=== PATIENT | male | born 1970 | race Two or more races ===

== ENCOUNTER 2020-10-30 03:33 | Emergency (ER) | payer MEDICAID, OTHER ==
[~2020-10-30] VITALS: Ht 170.2 cm; Wt 104.3 kg
[2020-10-30 04:10] VITALS: BP 167/107
[2020-10-30] MEDS ORDERED: PANTOPRAZOLE 40 MG/10 ML VIAL INJ IV ONE (04:30)
[2020-10-30] MEDS ORDERED: SODIUM CHLORIDE 0.9% 1,000 ML IV ONE (04:30)
[2020-10-30 12:20] LABS: Urine Bacteria NONE SEEN /hpf (None Seen); Urine Blood Negative /uL (Negative); Urine Specific Gravity 1.014 (1.001-1.035); Urine WBC 1 /hpf (0 - 3)
== END 2020-10-30 15:42 | disposition left against medical advice (07) ==
LOC: ER 03:33
DX: K80.10 Calculus of gallbladder with chronic cholecystitis without obstruction (principal)
CPT/HCPCS: 74176; 76705; 81001; 99285; J7030

== ENCOUNTER 2025-09-21 18:08 | Inpatient (IN) | payer MEDICAID ==
[~2025-09-21] VITALS: Ht 170.2 cm; Wt 127.9 kg
[2025-09-21] MEDS: MORPHINE SULFATE INJ 2 MG/ml SYRG IV ONE (18:45)
--- NOTE | 2025-09-21 19:08 | ED.PDOC ---
History of Present Illness HPI Comments 55 y/o M presents with c/c of bilateral leg pain, numbness, tingling, swelling, and skin discoloration. Significant history for DM, HTN, and noncompliance. Patient reports on 1.5x day history of pain, numbness, and tingling in his legs and developing dark skin discoloration, today, with associated fever and chills. He denies any recent trauma, injuries, or long distance travel but reports on having similar symptoms 2x years ago when he had cellulitis. Patient also mentions on being without his DM and HTN medications, that he is unable to recall the names of, since July 09, 2025, due to financial costs. Patient also complains of chest wall pain after falling and injuring his chest 2 days ago. No reported shortness of breath, additional injuries, or further acute symptoms. REVIEW OF SYSTEMS: General: Fever and chills. No fatigue HEENT: No sore throat, no earache, no congestion, no neck pain. Cardiac: This wall pain. No palpitations. Lungs: No shortness of breath, no cough. GI: No nausea, no vomiting, no diarrhea, no constipation, no abdominal pain : No dysuria, frequency, or urgency. No hematuria. Musculoskeletal: Bilateral lower extremity pain and edema. No joint pain , no joint swelling Skin: Bilateral lower extremity skin discoloration, No rash, no itching. Neuro: Bilateral lower extremity numbness and tingling. No headache, no dizziness, no weakness (And as sated in HPI) PHYSICAL EXAM: General: Awake, alert and oriented. No acute distress. Skin: Skin in warm, dry and intact. Appropriate color for ethnicity. HEENT: The head is normocephalic and atraumatic. Conjunctivae are clear without exudates or hemorrhage. Sclera is non-icteric. Eyelids are normal in appearance without swelling or lesions. Oral mucosa is pink and moist Neck: The neck is supple with normal range of motion. No JVD. Cardiac: Left chest wall bruising with tenderness to palpation. Heart rate and rhythm are normal. No murmurs, gallops, or rubs are auscultated. Respiratory: No signs of respiratory distress. Lung sounds are clear in all lobes bilaterally without rales, rhonchi, or wheezes. Abdominal: Abdomen is soft, non-tender without distention, guarding or rigidity. Bowel sounds are present and normoactive in all four quadrants. Extremities: BLE tenderness, edema, venous stasis changes. Sensations are intact with normal DP pulses, bilaterally, to lower extremities. Neurological: The patient is awake, alert and oriented to person, place, and time with normal speech. Speech is clear. There is no facial asymmetry. Psychiatric: Appropriate mood and affect. Good judgement and insight. Chief Complaint: Extremity Swelling Time Seen by MD: 18:45 Allergies: Coded Allergies: NO KNOWN ALLERGIES (Unverified , 10/30/20) Mode of Arrival: Ambulatory Past Medical History PAST MEDICAL HISTORY: DM, HTN Past Medical History (Other): Noncompliance Surgical History: Appendectomy Family History Family History: Reviewed,noncontributory to illness Social History Smoker: Non-Smoker Alcohol: Denies ETOH Use Drugs: Denies Drug Use Lives In: Home Was a procedure done? Was a procedure done?: No Differential Dx Considerations may include: Viral illness, pharyngitis, otitis media, bacteremia, pneumonia, UTI, meningitis, sepsis, cellulitis, DVT, CHF exacerbation, DKA, uncontrolled diabetes, uncontrolled hypertension, other X-Ray, Labs, Meds, VS Vital Signs Date Time Temp Pulse Resp B/P (MAP) Pulse Ox O2 Delivery O2 Flow Rate FiO2 09/21/25 18:09 98.4 121 18 150/106 97 98.4 Lab Test 09/21/25 20:36 09/21/25 19:14 Range/Units Lactic Acid Level Pending Troponin I High Sensitivity Pending 4 </=54 ng/L White Blood Count 17.8 H 4.4-10.8 10^3/uL Red Blood Count 5.50 4.5-5.90 10^6/uL Hemoglobin 16.6 13.5-17.5 g/dL Hematocrit 50.2 41.0-53.0 % Mean Corpuscular Volume 91.2 80.0-100.0 fL Mean Corpuscular Hemoglobin 30.1 28.0-32.0 pg Mean Corpuscular Hemoglobin Concent 33.0 32.0-36.0 g/dL Red Cell Distribution Width 13.5 11.8-14.3 % Platelet Count 213 140-450 10^3/uL Mean Platelet Volume 8.3 6.9-10.8 fL Neutrophils (%) (Auto) 89.9 H 37.0-80.0 % Lymphocytes (%) (Auto) 5.2 L 10.0-50.0 % Monocytes (%) (Auto) 4.5 0.0-12.0 % Eosinophils (%) (Auto) 0.3 0.0-7.0 % Basophils (%) (Auto) 0.1 0.0-2.0 % Neutrophils # (Auto) 16.0 H 1.6-8.6 10 ^3/uL Lymphocytes # (Auto) 0.9 0.4-5.4 10 ^3/uL Monocytes # (Auto) 0.8 0-1.3 10 ^3/uL Eosinophils # (Auto) 0.1 0-0.8 10 ^3/uL Basophils # (Auto) 0 0-0.2 10 ^3/uL Nucleated Red Blood Cells 0.1 % Sodium Level 136 136-145 mmol/L Potassium Level 4.3 3.5-5.1 mmol/L Chloride Level 105 98-107 mmol/L Carbon Dioxide Level 20 20-31 mmol/L Anion Gap 11 5-15 Blood Urea Nitrogen 11 9-23 mg/dL Creatinine 0.83 0.700-1.30 mg/dL Glomerular Filtration Rate Calc 105 >90 mL/min BUN/Creatinine Ratio 13.3 10.0-20.0 Serum Glucose 120 H 74-106 mg/dL Calcium Level 9.1 8.7-10.4 mg/dL B-Type Natriuretic Peptide 16.86 0-100 pg/mL [place] [address] Ph: [phone] DIAGNOSTIC IMAGING Diagnostic Imaging Report : [id number] Signed PATIENT: HUANG FRASER ACCT: [id number] UNIT: [id number] : 1970 LOC: ER ROOM / BED: / AGE / SEX: 55 / M ADM STATUS: REG ER SERVICE [id number] ORDERING PHYSICIAN: PAM YANCEY MD PROCEDURE(s): BLDVT - BiLat Lower DVT REASON: b/l le edema ORDER NUMBER(s): [id number], ACCESSION NUMBER(s): [id number] US BiLat Lower DVT Comparison: CV VENOUS DOPPLER LOW EXT RT on DOS: 07/15/23 Technique: Realtime grayscale and Doppler ultrasound images of the deep venous structures with spectral waveform analysis were obtained.Doppler spectral waveform analysis of the bilateral lower extremity veins was performed. Findings: Right Lower Extremity: Right common femoral vein: Normal compressibility and flow. Right femoral vein: Normal compressibility and flow. Right popliteal vein: Normal compressibility and flow. Left Lower Extremity: Left common femoral vein: Normal compressibility and flow. Left femoral vein: Normal compressibility and flow. Left popliteal vein: Normal compressibility and flow. IMPRESSION: NO SONOGRAPHIC EVIDENCE FOR DEEP VENOUS THROMBOSIS IN THE BILATERAL LOWER EXTREMITY VEINS. ATED BY: WARD TRAMMELL MD DICTATED DATE/TIME: 09/21/251951 SIGNED BY: WARD TRAMMELL MD SIGNED DATE/TIME: 09/21/251951 CC: [place] [id number] Ph: [phone] DIAGNOSTIC IMAGING Diagnostic Imaging Report : [id number] Signed PATIENT: HUANG FRASER ACCT: [id number] UNIT: [id number] : 1970 LOC: ER ROOM / BED: / AGE / SEX: 55 / M ADM STATUS: REG ER SERVICE 44 ORDERING PHYSICIAN: PAM YANCEY MD PROCEDURE(s): CXR1 - CHEST XRAY 1 VIEW REASON: cp ORDER NUMBER(s): [id number], ACCESSION NUMBER(s): [id number] CHEST RADIOGRAPH Indication: cp Technique: Single frontal view of the chest was obtained. Comparison: XR CHEST 1 VIEW on DOS: 03/04/21 Findings: No focal consolidation. No significant pleural effusion. No pneumothorax. Nonenlarged cardiomediastinal silhouette. IMPRESSION: No acute cardiopulmonary process. ATED BY: WARD TRAMMELL MD DICTATED DATE/TIME: 09/21/251957 SIGNED BY: WARD TRAMMELL MD SIGNED DATE/TIME: 09/21/251957 CC: Time of 1ST Reevaluation: 19:08 Reevaluation 1ST: Unchanged Patient Education/Counseling: Need For Follow Up Family Education/Counseling: No Family Present SEPSIS Sepsis Screen Date sepsis recognized/suspect: Sep 21, 2025 Time Sepsis recognized/suspect: 1809 Recent Procedure: No On Antibiotic Therapy: No Respiratory Rate >20: No Heart Rate >90: No Temp<36 C (96.8 F) or >38.3 C: No SBP <90 or MAP <65 mmHG: No New Acute Mental Status Change: No Is the patient on CPAP, BIPAP,: No Physician Orders Bilat Lower Dvt (09/21/25 18:45) Electrocardigram (09/21/25 18:45) Chest Xray 1 View (09/21/25 18:45) Vital Signs Q1HR (09/21/25 18:45) Saline Lock (09/21/25 18:45) Rn Nursery (09/21/25 ) Electrocardigram (09/21/25 19:45) Electrocardigram (09/21/25 21:45) Troponin-I Hs (09/21/25 19:45) Troponin-I Hs (09/21/25 21:45) Blood Culture (09/21/25 19:57) Lactic Acid W/ Reflex Order (09/21/25 19:57) Sodium Chloride 0.9% (09/21/25 20:00) Sodium Chloride 0.9% (09/21/25 20:00) Vancomycin 1gm/250ml Kit (09/21/25 20:45) Vital Signs Date Time Temp Pulse Resp B/P (MAP) Pulse Ox O2 Delivery O2 Flow Rate FiO2 09/21/25 18:09 98.4 121 18 150/106 97 98.4 Laboratory Tests Test 09/21/25 19:14 09/21/25 20:36 White Blood Count 17.8 10^3/uL (4.4-10.8) H Lactic Acid Level Pending Departure 1 Departure Time of Disposition: 20:56 Impression: Primary Impression: Cellulitis Disposition: LEFT AWOL/ELOPED Condition: Stable Comments MDM: 55-year-old male with bilateral lower extremity cellulitis Antibiotics initiated in the ED Patient is stabilized in the ED Patient admitted to hospitalist service for further treatment, evaluation and monitoring. Extensive evaluation was performed in attempt to identify or rule out: (See differential diagnosis section) The following tests were ordered, and results were reviewed by me and discussed with patient: (See diagnostic results section) The following test were independently interpreted by me: Troponin, EKG, BNP, CBC, BMP I reviewed and agreed with the following test results read by other providers: Chest x-ray, bilateral lower extremity DVT ultrasound I reviewed the following notes from the pt's past medical encounters: October 30, 2020 encounter for acute abdominal pain Additional information was gathered from interviewing the following independent historians: N/A Discussion of management or test interpretation with external physician/other qualified health family member caretaker: N/A Addressed an acute or chronic illness that poses a threat to life or bodily function: Cellulitis Decision regarding hospitalization or escalation of hospital level of care: Risk and benefits of admission for further treatment of patient's condition was considered. Due to patient's current clinical condition, high risk of decline and poor outcome if discharged and need for further inpatient management and monitoring, patient will be admitted to the hospital. Critical Care Note Critical Care Time?: No Stability Stability form required: No Heart Score Heart Score: Heart Score Response (Comments) Value History N/A 0 EKG N/A 0 Age N/A 0 Risk Factors N/A 0 Troponin N/A 0 Total 0 I personally scribed for PAM YANCEY MD ([email or web address]) on 09/21/25 at 19:08. Electronically submitted by Aren Chawla ([email or web address]). I personally scribed for PAM YANCEY MD ([email or web address]) on 09/21/25 at 20:02. Electronically submitted by Nii Ruiz ([email or web address]). PAM YANCEY MD Sep 21, 2025 19:08
[2025-09-21 19:27] LABS: Hematocrit 50.2 % (41.0-53.0); Hemoglobin 16.6 g/dL (13.5-17.5); Mean Corpuscular Hemoglobin 30.1 pg (28.0-32.0); Mean Corpuscular Volume 91.2 fL (80.0-100.0); Nucleated Red Blood Cells % 0.1 %
[2025-09-21 19:49] LABS: Chloride 105 mmol/L (98-107); Potassium 4.3 mmol/L (3.5-5.1)
[2025-09-21 19:50] LABS: Anion Gap 11 (5-15)
[2025-09-21 19:51] LABS: Calcium 9.1 mg/dL (8.7-10.4)
[2025-09-21 19:55] LABS: BUN/Creatinine Ratio 13.3 (10.0-20.0); Blood Urea Nitrogen 11 mg/dL (9-23)
--- NOTE | 2025-09-21 19:55 | DVH ---
US BiLat Lower DVT Comparison: CV VENOUS DOPPLER LOW EXT RT on DOS: 07/15/23 Technique: Realtime grayscale and Doppler ultrasound images of the deep venous structures with spectral waveform analysis were obtained.Doppler spectral waveform analysis of the bilateral lower extremity veins was performed. Findings: Right Lower Extremity: Right common femoral vein: Normal compressibility and flow. Right femoral vein: Normal compressibility and flow. Right popliteal vein: Normal compressibility and flow. Left Lower Extremity: Left common femoral vein: Normal compressibility and flow. Left femoral vein: Normal compressibility and flow. Left popliteal vein: Normal compressibility and flow. IMPRESSION: NO SONOGRAPHIC EVIDENCE FOR DEEP VENOUS THROMBOSIS IN THE BILATERAL LOWER EXTREMITY VEINS.
[2025-09-21] MEDS: SODIUM CHLORIDE 0.9% 1,000 ML IV ONE ×2 (20:00)
--- NOTE | 2025-09-21 20:00 | DVH ---
CHEST RADIOGRAPH Indication: cp Technique: Single frontal view of the chest was obtained. Comparison: XR CHEST 1 VIEW on DOS: 03/04/21 Findings: No focal consolidation. No significant pleural effusion. No pneumothorax. Nonenlarged cardiomediastinal silhouette. IMPRESSION: No acute cardiopulmonary process.
[2025-09-21 20:08] LABS: Carbon Dioxide 20 mmol/L (20-31); Glucose 120 mg/dL (74-106); Sodium 136 mmol/L (136-145)
[2025-09-21] MEDS ORDERED: VANCOMYCIN 1GM/250ML KIT 250 ML IV ONE (20:45)
[2025-09-21] MEDS: LOSARTAN POTASSIUM 25 MG TAB PO ONE (21:45)
[2025-09-21] MEDS ORDERED: SODIUM CHLORIDE 0.9% 1,000 ML IV ONE (21:45)
--- NOTE | 2025-09-21 21:48 | DVHHPRES ---
History of Present Illness Resident Creating Document: [facility]T [facility] RESIDENT History of Present Illness Mr Armand Mondragon, is a 55-year-old male with past medical history of insulin- dependent diabetes mellitus, hypertension noncompliant with medicines, fatty liver disease, recurrent cellulitis presented to the ER with the complaints of bilateral leg swelling and redness gradually developing since last 2 days, associated with fever and chills. He also reports having tingling and numbness on the lower extremities. The patient also had a fall 4 days back followed by left-sided chest pain. He also reports having shortness of breaths. He denies any other complaints. Past surgical history: Appendectomy Family history: Grandmother had a bone cancer, no other significant history, no history of blood clots in the family Home medications: Patient does not recall, patient will call sister Smoking: Drugs: amphetamine, cocaine Alcohol: Allergies: None Family doctor: Dr. Elmore? code status: full code Review of Systems Allergies: Coded Allergies: NO KNOWN ALLERGIES (Unverified , 10/30/20) Medications Current Medications Medications Dose Ordered Sig/Delia Route Start Time Stop Time Status Last Admin Dose Admin Acetaminophen/ Hydrocodone Bitart 1 tab Q6HP PRN PO 09/21/25 21:45 Ceftriaxone Sodium 50 ml @ 100 mls/hr DAILY@09 IV 09/22/25 09:00 Vancomycin HCl 250 ml @ 250 mls/hr DAILY IV 09/22/25 10:00 UNV Exam Vital Signs Vital Signs Date Time Temp Pulse Resp B/P (MAP) Pulse Ox O2 Delivery O2 Flow Rate FiO2 09/21/25 18:09 98.4 121 18 150/106 97 98.4 Exam Pt is lying on bed General Appearance: Alert, Oriented X3, Cooperative, Mild distress HEENT: Atraumatic, Mucous membranes moist/pink Respiratory: Clear to auscultation, Normal air movement, No added sounds Cardiovascular: Regular rate, Normal S1, Normal S2, No murmurs Abdominal/ : Active bowel sounds, Soft, no distention, no tenderness Extremities: Bilateral lower extremity edema and redness, Normal pulses Skin: No Significant rash, except past surgical scars Neuro: Normal speech, sensorimotor deficits none Psych/Mental Status: Mental status NL, Mood NL Nurse was there as purchasing officer during examination Labs/Xrays Labs Test 09/21/25 20:36 09/21/25 19:14 Range/Units Lactic Acid Level 2.0 0.4-2.0 mmol/L Troponin I High Sensitivity 4 </=54 ng/L White Blood Count 17.8 H 4.4-10.8 10^3/uL Red Blood Count 5.50 4.5-5.90 10^6/uL Hemoglobin 16.6 13.5-17.5 g/dL Hematocrit 50.2 41.0-53.0 % Mean Corpuscular Volume 91.2 80.0-100.0 fL Mean Corpuscular Hemoglobin 30.1 28.0-32.0 pg Mean Corpuscular Hemoglobin Concent 33.0 32.0-36.0 g/dL Red Cell Distribution Width 13.5 11.8-14.3 % Platelet Count 213 140-450 10^3/uL Mean Platelet Volume 8.3 6.9-10.8 fL Neutrophils (%) (Auto) 89.9 H 37.0-80.0 % Lymphocytes (%) (Auto) 5.2 L 10.0-50.0 % Monocytes (%) (Auto) 4.5 0.0-12.0 % Eosinophils (%) (Auto) 0.3 0.0-7.0 % Basophils (%) (Auto) 0.1 0.0-2.0 % Neutrophils # (Auto) 16.0 H 1.6-8.6 10 ^3/uL Lymphocytes # (Auto) 0.9 0.4-5.4 10 ^3/uL Monocytes # (Auto) 0.8 0-1.3 10 ^3/uL Eosinophils # (Auto) 0.1 0-0.8 10 ^3/uL Basophils # (Auto) 0 0-0.2 10 ^3/uL Nucleated Red Blood Cells 0.1 % Sodium Level 136 136-145 mmol/L Potassium Level 4.3 3.5-5.1 mmol/L Chloride Level 105 98-107 mmol/L Carbon Dioxide Level 20 20-31 mmol/L Anion Gap 11 5-15 Blood Urea Nitrogen 11 9-23 mg/dL Creatinine 0.83 0.700-1.30 mg/dL Glomerular Filtration Rate Calc 105 >90 mL/min BUN/Creatinine Ratio 13.3 10.0-20.0 Serum Glucose 120 H 74-106 mg/dL Calcium Level 9.1 8.7-10.4 mg/dL B-Type Natriuretic Peptide 16.86 0-100 pg/mL SEPSIS Sepsis Screen Date sepsis recognized/suspect: Sep 21, 2025 Time Sepsis recognized/suspect: 1809 Recent Procedure: No On Antibiotic Therapy: No Respiratory Rate >20: No Heart Rate >90: No Temp<36 C (96.8 F) or >38.3 C: No SBP <90 or MAP <65 mmHG: No New Acute Mental Status Change: No Is the patient on CPAP, BIPAP,: No Physician Orders Bilat Lower Dvt (09/21/25 18:45) Electrocardigram (09/21/25 18:45) Chest Xray 1 View (09/21/25 18:45) Vital Signs Q1HR (09/21/25 18:45) Saline Lock (09/21/25 18:45) Oil Well [employer]illing Manager (09/21/25 ) Electrocardigram (09/21/25 19:45) Electrocardigram (09/21/25 21:45) Troponin-I Hs (09/21/25 21:45) Blood Culture (09/21/25 19:57) Sodium Chloride 0.9% (09/21/25 20:00) Admit (09/21/25 21:37) Stat Ekg For Chest Pain (09/21/25 21:37) Notify Of Changes From Base (09/21/25 21:37) Comprehensive Metabolic Panel (09/22/25 04:00) Complete Blood Count (09/22/25 04:00) Hydrocodone-Acet 10/325mg Tab (Lotus 10/ (09/21/25 21:45) Ceftriaxone 1gm/50ml (Rocephin) (09/22/25 09:00) Vancomycin 1gm/250ml Kit (09/22/25 10:00) Vancomycin Per Pharmacy Protoc (09/21/25 21:39) Sodium Chloride 0.9% (09/21/25 21:45) Losartan Tablet (Cozaar Tablet) (09/21/25 21:45) Losartan Tablet (Cozaar Tablet) (09/22/25 10:00) Check Blood Glucos Befor Meals (09/21/25 21:44) Urinalysis (09/21/25 21:44) Drug Screen (09/21/25 21:44) Hepatic Panel (09/21/25 21:44) Vital Signs Date Time Temp Pulse Resp B/P (MAP) Pulse Ox O2 Delivery O2 Flow Rate FiO2 09/21/25 18:09 98.4 121 18 150/106 97 98.4 Laboratory Tests Test 09/21/25 19:14 09/21/25 20:36 White Blood Count 17.8 10^3/uL (4.4-10.8) H Lactic Acid Level 2.0 mmol/L (0.4-2.0) Assessment/Plan Assessment/Plan Sepsis secondary to cellulitis -IV bolus fluid -IV vancomycin and IV ceftriaxone -blood culture ordered Peripheral neuropathy -monitor blood glucose -vitamin B12 and TSH ordered Chest pain rule out ACS Traumatic left-sided chest pain -EKG and troponin ordered -chest x-ray ordered Hypertensive heart disease -losartan 25 mg started Type 2 diabetes mellitus Monitor blood glucose HbA1c ordered Polysubstance abuse Counseled regarding cessation GI prophylaxis: Pantoprazole DVT prophylaxis: Lovenox Diet: Regular Goals of care discussed with the patient for more than 27 minutes: Full code status Case discussed with Dr. Dejesus, patient and RN Plan discussed with: Patient, Other (RN) My Orders Orders - CURT AU RESIDENT Procedure Category Date Status Time Admit ADMIT 09/21/25 Transmitted 21:37 Stat Ekg For Chest [facility] 09/21/25 In Process Pain 21:37 Notify Of Changes [facility] 09/21/25 In Process From Base 21:37 Comprehensive LAB 09/22/25 Verified Metabolic Panel 04:00 Complete Blood Count LAB 09/22/25 Verified 04:00 Hydrocodone-Acet [facility] 09/21/25 In Process 10/325mg Tab (Lotus 21:45 Ceftriaxone 1gm/50ml [facility] 09/22/25 In Process (Rocephin) 09:00 Vancomycin 1gm/250ml [facility] 09/22/25 Logged Kit 10:00 Vancomycin Per [facility] 09/21/25 In Process Pharmacy Protoc 21:39 Sodium Chloride 0.9% [facility] 09/21/25 In Process 21:45 Losartan Tablet [facility] 09/21/25 Verified (Cozaar Tablet) 21:45 Losartan Tablet [facility] 09/22/25 Verified (Cozaar Tablet) 10:00 Check Blood Glucos [facility] 09/21/25 Verified Befor Meals 21:44 Urinalysis LAB 09/21/25 Verified 21:44 Drug Screen LAB 09/21/25 Verified 21:44 Hepatic Panel LAB 09/21/25 Verified 21:44 Date of Service: Sep 21, 2025 Billing Provider: JENNA DEJESUS MD Common Visit Codes: [id number] INP/OBS CARE (HIGH) Secondary Visit Codes: [id number] CARE PLAN 30 MINUTES ROECURT RESIDENT Sep 21, 2025 21:48
[2025-09-21] MEDS ORDERED: VANCOMYCIN PER PHARMACY 0 MG IV SCH (22:15)
[2025-09-21] MEDS ORDERED: VANCOMYCIN 1GM/250ML KIT 250 ML IV SCH (22:15)
[2025-09-21] MEDS: VANCOMYCIN 1GM/250ML IV SCH (22:30)
[2025-09-21 23:36] LABS: Alanine Aminotransferase 40.0 U/L (7-40); Albumin 4.1 g/dL (3.2-4.8); Alkaline Phosphatase 140.0 U/L (46-116); Bilirubin, Total 0.5 mg/dL (0.2-1.0); Total Protein 7.3 g/dL (5.7-8.2)
[2025-09-21] MEDS: GABAPENTIN 300 MG CAP PO ONE (23:45)
[2025-09-21] MEDS: HYDROcodone-ACET 10/325MG TAB PO PRN (23:46)
[2025-09-21 23:49] LABS: Bilirubin, Direct 0.2 mg/dL (<0.3)
[2025-09-22] VITALS (12 sets, daily range): BP systolic 127–160; BP diastolic 72–98; PULSE 96–121; RESP 18–24; TEMP 97.8–101.6; O2SAT 93–98
[2025-09-22] MEDS: SODIUM CHLORIDE 0.9% 1,000 ML IV ONE (00:30)
[2025-09-22] MEDS ORDERED: VANCOMYCIN 1GM/250ML KIT 250 ML IV ONE (00:45)
[2025-09-22 01:28] LABS: Urine Protein, UAD TRACE (Negative)
[2025-09-22 01:36] LABS: Cocaine Screen, Urine Pos (NEGATIVE)
[2025-09-22 01:40] LABS: Lactic Acid w/Reflex 2.6 mmol/L (0.4-2.0)
[2025-09-22 01:41] LABS: Amphetamine Screen, Urine Pos (NEGATIVE); Barbiturate Scree,Urine Neg (NEGATIVE); Benzodiazephine Screen, Urine Neg (NEGATIVE); Cannabinoid Screen, Urine Neg (NEGATIVE); Opiate Scree,Urine Neg (NEGATIVE); Phencyclidine Screen, Urine Neg (NEGATIVE)
[2025-09-22] MEDS: VANCOMYCIN 1GM/200ML PM 200 ML IV SCH (01:45)
[2025-09-22 04:06] LABS: Hematocrit 42.1 % (41.0-53.0); Hemoglobin 14.5 g/dL (13.5-17.5); Mean Corpuscular Hemoglobin 30.1 pg (28.0-32.0); Mean Corpuscular Volume 87.3 fL (80.0-100.0); Nucleated Red Blood Cells % 0.0 %
[2025-09-22 04:22] LABS: Alanine Aminotransferase 31 U/L (7-40); Albumin 3.7 g/dL (3.2-4.8); Anion Gap 9 (5-15); BUN/Creatinine Ratio 13.1 (10.0-20.0); Blood Urea Nitrogen 11 mg/dL (9-23); Carbon Dioxide 23 mmol/L (20-31); Chloride 105 mmol/L (98-107); Potassium 4.0 mmol/L (3.5-5.1); Sodium 137 mmol/L (136-145); Total Protein 6.7 g/dL (5.7-8.2)
[2025-09-22 04:23] LABS: Bilirubin, Total 0.4 mg/dL (0.2-1.0)
[2025-09-22 04:29] LABS: Alkaline Phosphatase 119 U/L (46-116); Calcium 8.4 mg/dL (8.7-10.4); Glucose 140 mg/dL (74-106)
[2025-09-22] MEDS: PANTOPRAZOLE 40 MG TAB PO SCH (05:59)
[2025-09-22] MEDS: ENOXAPARIN SOD 40 MG/0.4 ML SYRINGE SC SCH (09:09)
[2025-09-22] MEDS: LOSARTAN POTASSIUM 25 MG TAB PO SCH (09:09)
[2025-09-22] MEDS ORDERED: ACETAMINOPHEN 325 MG TAB PO PRN (09:45)
[2025-09-22] MEDS ORDERED: VANCOMYCIN 1GM/250ML KIT 250 ML IV SCH ×2 (10:00→19:00)
--- NOTE | 2025-09-22 10:53 | DVH ---
EXAMINATION: CT LEFT LOWER EXTREMITY W/O CON INDICATION: CELLULITIS/FASCITIS/COMPARTMENT SYNDROME, pain and swelling COMPARISON: US BILAT LOWER DVT on DOS: 09/21/25, CV VENOUS DOPPLER LOW EXT RT on DOS: 07/15/23, CT LOWER EXT RIGHT W and WO on DOS: 03/03/21, XR TIB FIB RT on DOS: 03/02/21 TECHNIQUE: CT of the rightleft femur was performed without contrast. Volume transverse images were obtained and reconstructed in multiple planes using bone and soft tissue algorithms. Radiation Dose : CTDIvol 15.33 mGy, DLP 1590.88 mGy*cm. The dose indicators for CT are the volume Computed Tomography (CT) Dose Index (CTDIvol) and the Dose Length Product (DLP), and are measured in units of mGy and mGy-cm, respectively. These indicators are not patient dose, but values generated from the CT scanner acquisition factors. The report includes radiation exposure data for exposures received during this examination. FINDINGS: Generalized soft tissue edema. No focal fluid collections. No soft tissue gas. No fracture or malalignment. No erosive bony changes. IMPRESSION: Diffuse soft tissue swelling suggesting cellulitis or fluid overload. No organized fluid collections or CT evidence for osteomyelitis. No soft tissue gas to suggest a necrotizing infection. All CT scans at this medical facility are performed using dose modulation techniques as appropriate to a performed exam including the following: Automated exposure control was utilized; adjustment of the MA and/or KV according to patient size; and use of iterative reconstruction technique.
--- NOTE | 2025-09-22 11:01 | DVHPNRES ---
Progress Note Date Seen: Sep 22, 2025 Resident Creating Document: LEXY CONNELLY RESIDENT Medical Necessity Reason Pt with a Central, PICC or Fol: No Subjective Review of Systems Mr Armand Mondragon, is a 55-year-old male with past medical history of diabetes mellitus type 2, hypertension noncompliant with medicines, fatty liver disease, recurrent cellulitis several times over the last 15-20 years presented to the ER with the complaints of bilateral leg swelling and redness gradually developing since last 2 days, associated with fever and chills. Patient reported pain in the bilateral lower extremity, 10/10, constant, sharp in nature. Also reported living is getting swollen. He also reports having tingling and numbness on the lower extremities. The patient also had a fall 4 days back followed by left- sided chest pain. He also reports having shortness of breaths. Nausea, vomiting, dysuria, cough, dysarthria or change in vision. On admission patient had tachycardia with a pulse 121, Initial lab workup revealed leukocytosis WBC 17.8, neutrophil 89.9, lactic acid 2.6, hemoglobin A1c 5.8. UDS positive for cocaine and meth. Bilateral lower extremity Doppler negative for DVT. CT scan of the bilateral lower extremity revealed cellulitis, no necrotizing lesion.. PMH-hypertension, diabetes mellitus type 2, fatty liver, history of recurrent cellulitis PSH- appendectomy Family history- Grandmother had a bone cancer, no other significant history, no history of blood clots in the family Allergy- NKDA Personal History/ Social History- patient uses amphetamine, cocaine, smokes half a pack of cigarettes for long time, occasional alcoholic, PCP-Dr. Peña VILLATORO Cardiovascular- deny acute chest pain or shortness of breath or cough or palpitation Respiratory denies cough or short of breath or wheezing Gastrointestinal- denies any rectal bleeding, nausea or vomiting Neurological- denies acute dysarthria, dysphagia, change in vision Psychiatry- denies depression or SI or HI Skin- denies acute rash or purpura Patient was seen today at bedside, labs and chart reviewed.UDS positive for cocaine and meth. Bilateral lower extremity Doppler negative for DVT. CT scan of the bilateral lower extremity revealed cellulitis, no necrotizing lesion. Patient on IV antibiotic cefepime and vancomycin, tolerating well. Pending blood culture. Vitals stable. Patient was counseled about the effect of substance abuse on health. Objective vital signs Vital Sign Date Time Temp Pulse Resp B/P (MAP) Pulse Ox O2 Delivery O2 Flow Rate FiO2 09/22/25 09:09 127/83 09/22/25 09:00 99.3 103 19 96 99.3 09/22/25 08:00 Nasal Cannula* 2 28 Total Intake and Output 09/21/25 09/21/25 09/22/25 15:00 23:00 07:00 Intake Total 1450 ml Output Total 50 ml Balance 1400 ml medications Current Medications Medications Dose Ordered Sig/Delia Route Start Time Stop Time Status Last Admin Dose Admin Acetaminophen/ Hydrocodone Bitart 1 tab Q6HP PRN PO 09/21/25 21:45 09/22/25 06:00 1 TAB Ceftriaxone Sodium 50 ml @ 100 mls/hr DAILY@09 IV 09/22/25 09:00 09/22/25 09:20 100 MLS/HR Losartan Potassium 25 mg DAILY PO 09/22/25 10:00 09/22/25 09:09 25 MG Enoxaparin Sodium 40 mg DAILY SC 09/22/25 10:00 09/22/25 09:09 40 MG Pantoprazole Sodium 40 mg DAILY@0600 PO 09/22/25 06:00 09/22/25 05:59 40 MG Vancomycin HCl 0 ml @ 0 mls/hr PER PHARMACY IV 09/21/25 22:15 Acetaminophen 650 mg Q6HP PRN PO 09/22/25 09:45 UNV Examination General examination- awake, alert, oriented HEENT- PEERLA, no acute nasal discharge Cardiovascular- S1-S2 audible, rate and rhythm regular, no murmur Respiratory- CTAB, no wheeze or rhonchi Gastrointestinal-nontender, bowel sound+. Nondistended Musculoskeletal-no acute joint swelling or tenderness or redness Lower extremity- bilateral lower extremity swollen, edematous, redness, tender to touch Neurological- cranial nerves intact, no acute dysarthria or dysphagia Psychiatry- denies depression or SI or HI Skin- no acute rash or purpura laboratory and microbiology Laboratory Tests 09/22/25 03:23 Test 09/22/25 03:23 Range/Units Serum Glucose 140 H 74-106 mg/dL Problem List/Assessment/Plan Problem List/Assessment/Plan Assessment and plan #Sepsis secondary to cellulitis -WBC 21.4 -patient is a temperature of 101.6 -Doppler study of lower extremity negative for DVT -CT scan of the bilateral lower extremity-revealed cellulitis, no necrotizing lesion -status post IV bolus fluid -continue cefepime as prescribed -continue vancomycin as per pharmacy protocol -pending blood culture #Peripheral neuropathy -plan is to get a good control of blood sugar -monitor blood glucose -vitamin B12 and TSH with a normal limit - Continue current pain management #Chest pain rule out ACS #Traumatic left-sided chest pain -chest x-ray no acute abnormality -troponin I with a normal limit -history of fall and trauma to the chest -troponin I with a normal limit -continue pain medication - #Hypertensive heart disease --losartan 25 mg p.o. daily -fissure #Type 2 diabetes mellitus -hemoglobin A1c 5.8 -low carb diet Monitor blood glucose #Polysubstance abuse -UDS positive for cocaine and amphetamine -patient is counseled about the effect of substance abuse on health Goals of care, Code status full code ; discussed with >15 minutes PUD prophylaxis: Pantoprazole DVT prophylaxis: Lovenox Plan discussed with Dr. Wing, nursing staff, Total time spent on patient evaluation, chart review, assessment and plan, discussion discussion >35 minutes Plan discussed with: Patient, Other (RN) My Orders My Orders Orders - LEXY CONNELLY Procedure Category Date Status Time Left Lower Extremity CT 09/22/25 Taken W/O Con 09:19 Lactic Acid W/ Reflex LAB 09/22/25 Logged Order 09:29 Acetaminophen Tablet PHA 09/22/25 Logged (Tylenol Tablet) 09:45 Date of Service: Sep 22, 2025 Billing Provider: KHOA WING DO Common Visit Codes: [id number] INP/OBS CARE(HIGH) LEXY CONNELLY Sep 22, 2025 11:01 KHOA WING DO Sep 24, 2025 01:29
--- NOTE | 2025-09-22 11:15 | DVH ---
EXAMINATION: CT LOWER EXTREMITY NON JOINT RIGH INDICATION: SWELLING PAIN COMPARISON: CT LEFT LOWER EXTREMITY W/O CON on DOS: 09/22/25, CV VENOUS DOPPLER LOW EXT RT on DOS: 07/15/23, CT LOWER EXT RIGHT W and WO on DOS: 03/03/21, XR TIB FIB RT on DOS: 03/02/21 TECHNIQUE: CT of the rightleft femur was performed without contrast. Volume transverse images were obtained and reconstructed in multiple planes using bone and soft tissue algorithms. Radiation Dose : CTDIvol 15.33 mGy, DLP 1590.88 mGy*cm. The dose indicators for CT are the volume Computed Tomography (CT) Dose Index (CTDIvol) and the Dose Length Product (DLP), and are measured in units of mGy and mGy-cm, respectively. These indicators are not patient dose, but values generated from the CT scanner acquisition factors. The report includes radiation exposure data for exposures received during this examination. FINDINGS: Diffuse soft tissue edema throughout the right lower extremity. No focal fluid collections. No fracture or malalignment. No erosive bony changes. Few prominent lymph nodes in the right groin, likely reactive. IMPRESSION: Soft tissue swelling suggesting cellulitis. No organized fluid collections or CT evidence for osteomyelitis. No soft tissue gas to suggest a necrotizing infection. All CT scans at this medical facility are performed using dose modulation techniques as appropriate to a performed exam including the following: Automated exposure control was utilized; adjustment of the MA and/or KV according to patient size; and use of iterative reconstruction technique.
[2025-09-22] MEDS: VANCOMYCIN 1GM/250ML KIT 250 ML IV ONE (11:17)
[2025-09-22] MEDS: VANCOMYCIN 1GM/250ML KIT 250 ML IV SCH (20:57)
[2025-09-23] VITALS (8 sets, daily range): BP systolic 121–158; BP diastolic 71–101; PULSE 94–109; RESP 18–20; TEMP 98–99.1; O2SAT 92–96
[2025-09-23 04:34] LABS: Hematocrit 42.0 % (41.0-53.0); Hemoglobin 14.2 g/dL (13.5-17.5); Mean Corpuscular Hemoglobin 29.9 pg (28.0-32.0); Mean Corpuscular Volume 88.1 fL (80.0-100.0); Nucleated Red Blood Cells % 0.1 %
[2025-09-23 04:44] LABS: Alanine Aminotransferase 26 U/L (7-40); Albumin 3.7 g/dL (3.2-4.8); Alkaline Phosphatase 99 U/L (46-116); Anion Gap 11 (5-15); BUN/Creatinine Ratio 9.2 (10.0-20.0); Bilirubin, Total 0.4 mg/dL (0.2-1.0); Calcium 8.8 mg/dL (8.7-10.4); Carbon Dioxide 20 mmol/L (20-31); Chloride 106 mmol/L (98-107); Potassium 4.2 mmol/L (3.5-5.1); Sodium 137 mmol/L (136-145); Total Protein 6.8 g/dL (5.7-8.2)
[2025-09-23 04:50] LABS: Blood Urea Nitrogen 8 mg/dL (9-23); Glucose 113 mg/dL (74-106)
--- NOTE | 2025-09-23 10:16 | DVHPN2 ---
CURT ALFARO RESIDENT 09/23/25 1016: Progress Note Date Seen: Sep 23, 2025 Has the PT tested + for MRSA If YES, has PT been informed?: No Medical Necessity Reason Pt with a Central, PICC or Fol: No Subjective Review of Systems Mr Armand Mondragon, is a 55-year-old male with past medical history of insulin- dependent diabetes mellitus, hypertension noncompliant with medicines, fatty liver disease, recurrent cellulitis presented to the ER with the complaints of bilateral leg swelling and redness gradually developing since last 2 days, associated with fever and chills. He also reports having tingling and numbness on the lower extremities. The patient also had a fall 4 days back followed by left-sided chest pain. He also reports having shortness of breaths. He denies any other complaints. Past surgical history: Appendectomy Family history: Grandmother had a bone cancer, no other significant history, no history of blood clots in the family Home medications: Patient does not recall, patient will call sister UDS +: amphetamine, cocaine Alcohol: Allergies: None code status: full code 09/23/25: Patient is seen and examined at bedside, CT scan from both legs are negative for collections, US neg for DVT, patient was on ceftriaxone and vancomycin, his left leg is getting better but his right leg is very tender and tight, so we will escalate AB: cefepime. Objective vital signs Vital Sign Date Time Temp Pulse Resp B/P (MAP) Pulse Ox O2 Delivery O2 Flow Rate FiO2 09/23/25 09:19 139/99 09/23/25 09:00 98.6 105 20 92 98.6 09/22/25 20:00 Room Air* 0 21 Total Intake and Output 09/22/25 09/22/25 09/23/25 15:00 23:00 07:00 Intake Total 550 ml 930 ml Output Total 1050 ml Balance -500 ml 930 ml medications Current Medications Medications Dose Ordered Sig/Delia Route Start Time Stop Time Status Last Admin Dose Admin Acetaminophen/ Hydrocodone Bitart 1 tab Q6HP PRN PO 09/21/25 21:45 09/23/25 03:11 1 TAB Ceftriaxone Sodium 50 ml @ 100 mls/hr DAILY@09 IV 09/22/25 09:00 09/23/25 09:19 100 MLS/HR Losartan Potassium 25 mg DAILY PO 09/22/25 10:00 09/23/25 09:19 25 MG Enoxaparin Sodium 40 mg DAILY SC 09/22/25 10:00 09/23/25 09:19 40 MG Pantoprazole Sodium 40 mg DAILY@0600 PO 09/22/25 06:00 09/23/25 05:36 40 MG Vancomycin HCl 0 ml @ 0 mls/hr PER PHARMACY IV 09/21/25 22:15 Acetaminophen 650 mg Q6HP PRN PO 09/22/25 09:45 Hold Vancomycin HCl 250 ml @ 250 mls/hr Q8H IV 09/22/25 20:00 09/23/25 04:15 250 MLS/HR laboratory and microbiology Laboratory Tests 09/23/25 03:03 Test 09/23/25 03:03 Range/Units Serum Glucose 113 H 74-106 mg/dL Microbiology Date/Time Source Procedure Growth Status 09/21/25 20:36 Blood Blood Culture - Preliminary NO GROWTH AFTER 24 HOURS OF INCUBATION. Resulted Problem List/Assessment/Plan Problem List/Assessment/Plan Sepsis secondary to cellulitis in bilateral legs -IV fluids negative -IV vancomycin and IV cefepime -blood culture prelim negative -there is no open wound for cultures, we need to continue f/u due to the risk for necrotizing fascitis 09/23/25: Patient is seen and examined at bedside, CT scan from both legs are negative for collections, US neg for DVT, patient was on ceftriaxone and vancomycin, his left leg is getting better but his right leg is very tender and tight, so we will escalate AB: cefepime. Peripheral neuropathy -monitor blood glucose: normal -vitamin B12 and TSH normal Chest pain rule out ACS Traumatic left-sided chest pain -EKG ordered and troponin neg -chest x-ray: normal Hypertensive heart disease -losartan 25 mg started Type 2 diabetes mellitus Monitor blood glucose HbA1c normal Polysubstance abuse Counseled regarding cessation GI prophylaxis: Pantoprazole DVT prophylaxis: Lovenox Diet: Regular Goals of care discussed with the patient for more than 27 minutes: Full code status Case discussed with Dr. Solares, patient and RN Plan discussed with: Patient, Other (rn) Date of Service: Sep 23, 2025 Billing Provider: KAVYA SOLARES MD Common Visit Codes: [id number] INP/OBS CARE(MOD) KHOA WING DO 09/24/25 0130: Date of Service: Sep 23, 2025 Billing Provider: KHOA WING DO Common Visit Codes: [id number] INP/OBS CARE(HIGH) CURT ALFARO RESIDENT Sep 23, 2025 10:16 KHOA WING DO Sep 24, 2025 01:30
[2025-09-23] MEDS: CEFEPIME 1GM/50ML 50 ML IV SCH (14:10)
[2025-09-24 05:00] VITALS: BP 145/97; PULSE 88; RESP 18; TEMP 97.5; O2SAT 96
[2025-09-24 06:06] LABS: Hematocrit 42.0 % (41.0-53.0); Hemoglobin 14.3 g/dL (13.5-17.5); Mean Corpuscular Hemoglobin 29.5 pg (28.0-32.0); Mean Corpuscular Volume 86.9 fL (80.0-100.0); Nucleated Red Blood Cells % 0.0 %
[2025-09-24 06:39] LABS: Alanine Aminotransferase 24 U/L (7-40); Alkaline Phosphatase 101 U/L (46-116); Anion Gap 9 (5-15); Calcium 8.8 mg/dL (8.7-10.4); Carbon Dioxide 23 mmol/L (20-31); Chloride 107 mmol/L (98-107); Potassium 4.2 mmol/L (3.5-5.1); Sodium 139 mmol/L (136-145)
[2025-09-24 06:40] LABS: BUN/Creatinine Ratio 14.5 (10.0-20.0); Blood Urea Nitrogen 10 mg/dL (9-23); Total Protein 7.0 g/dL (5.7-8.2)
[2025-09-24 06:41] LABS: Albumin 3.7 g/dL (3.2-4.8)
[2025-09-24 06:42] LABS: Bilirubin, Total 0.4 mg/dL (0.2-1.0)
[2025-09-24 06:45] LABS: Glucose 121 mg/dL (74-106)
[2025-09-24 08:00] VITALS: PULSE 85; RESP 18; O2SAT 95
[2025-09-24] MEDS: CEFEPIME 1GM/50ML 50 ML IV SCH (08:00)
[2025-09-24 09:00] VITALS: BP 153/102; PULSE 85; RESP 18; TEMP 98.2; O2SAT 97
[2025-09-24] MEDS ORDERED: BACDST PO ×2 (13:05→13:12)
--- NOTE | 2025-09-24 15:00 | DVHDSRES ---
Discharge Summary Date of Admission Resident Creating Document: LEXY CONNELLY Sep 21, 2025 at 21:37 Date of Discharge: Sep 24, 2025 Admitting Diagnosis Sepsis likely due cellulitis Labs/Diagnostic Data: Laboratory Results Test 09/24/25 04:37 09/23/25 03:03 09/22/25 10:44 09/22/25 03:23 White Blood Count 8.8 10^3/uL (4.4-10.8) Red Blood Count 4.83 10^6/uL (4.5-5.90) Hemoglobin 14.3 g/dL (13.5-17.5) Hematocrit 42.0 % (41.0-53.0) Mean Corpuscular Volume 86.9 fL (80.0-100.0) Mean Corpuscular Hemoglobin 29.5 pg (28.0-32.0) Mean Corpuscular Hemoglobin Concent 34.0 g/dL (32.0-36.0) Red Cell Distribution Width 13.3 % (11.8-14.3) Platelet Count 195 10^3/uL (140-450) Mean Platelet Volume 8.8 fL (6.9-10.8) Neutrophils (%) (Auto) 69.8 % (37.0-80.0) Lymphocytes (%) (Auto) 17.7 % (10.0-50.0) Monocytes (%) (Auto) 9.2 % (0.0-12.0) Eosinophils (%) (Auto) 3.1 % (0.0-7.0) Basophils (%) (Auto) 0.2 % (0.0-2.0) Neutrophils # (Auto) 6.2 10 ^3/uL (1.6-8.6) Lymphocytes # (Auto) 1.6 10 ^3/uL (0.4-5.4) Monocytes # (Auto) 0.8 10 ^3/uL (0-1.3) Eosinophils # (Auto) 0.3 10 ^3/uL (0-0.8) Basophils # (Auto) 0 10 ^3/uL (0-0.2) Nucleated Red Blood Cells 0.0 % Sodium Level 139 mmol/L (136-145) Potassium Level 4.2 mmol/L (3.5-5.1) Chloride Level 107 mmol/L (98-107) Carbon Dioxide Level 23 mmol/L (20-31) Anion Gap 9 (5-15) Blood Urea Nitrogen 10 mg/dL (9-23) Creatinine 0.69 mg/dL (0.700-1.30) Glomerular Filtration Rate Calc 111 mL/min (>90) BUN/Creatinine Ratio 14.5 (10.0-20.0) Serum Glucose 121 mg/dL (74-106) Calcium Level 8.8 mg/dL (8.7-10.4) Total Bilirubin 0.4 mg/dL (0.2-1.0) Aspartate Amino Transferase (AST) 18 U/L (13-40) Alanine Aminotransferase (ALT) 24 U/L (7-40) Alkaline Phosphatase 101 U/L (46-116) Total Protein 7.0 g/dL (5.7-8.2) Albumin 3.7 g/dL (3.2-4.8) Vancomycin Level Trough 13.1 ug/mL (5-10) Lactic Acid Level 1.2 mmol/L (0.4-2.0) Hepatitis B Surface Antigen Negative (Negative) Test 09/22/25 00:45 09/21/25 22:23 09/21/25 19:14 Urine Color Yellow (Yellow) Urine Clarity Clear (Clear) Urine pH 8.0 (5.0-9.0) Urine Specific [place] 1.027 (1.001-1.035) Urine Protein Trace (Negative) Urine Ketones Negative (Negative) Urine Blood Negative /uL (Negative) Urine Nitrite Negative (Negative) Urine Bilirubin Negative (Negative) Urine Urobilinogen 4 mg/dL (Negative) Urine Leukocyte Esterase Negative /uL (Negative) Urine RBC <1 /hpf (0 - 3) Urine Microscopic WBC 1 /HPF (0-3) Urine Squamous Epithelial Cells None seen /hpf (<5) Urine Bacteria None seen /hpf (None Seen) Urine Glucose Normal mg/dL (Normal) Urine Opiates Screen Neg (NEGATIVE) Urine Fentanyl Screen Neg (NEGATIVE) Urine Barbiturates Screen Neg (NEGATIVE) Urine Phencyclidine Screen Neg (NEGATIVE) Urine Amphetamines Screen Pos (NEGATIVE) Urine Benzodiazepines Screen Neg (NEGATIVE) Urine Cocaine Screen Pos (NEGATIVE) Urine Cannabinoids Screen Neg (NEGATIVE) Hemoglobin A1c 5.8 % A1C (<5.7) Direct Bilirubin 0.2 mg/dL (<0.3) Troponin I High Sensitivity 5 ng/L (</=54) Vitamin B12 Level 274 pg/mL (211-911) Vitamin D 25-Hydroxy 36.1 ng/mL (30.0-100) Thyroid Stimulating Hormone (TSH) 0.98 uIU/mL (0.55-4.78) B-Type Natriuretic Peptide 16.86 pg/mL (0-100) Other Laboratory Tests 09/24/25 04:37 Brief Hx & Hospital Course: Mr Huang Fraser, is a 55-year-old male with past medical history of diabetes mellitus type 2, hypertension noncompliant with medicines, fatty liver disease, recurrent cellulitis several times over the last 15-20 years presented to the ER with the complaints of bilateral leg swelling and redness gradually developing since last 2 days, associated with fever and chills. Patient reported pain in the bilateral lower extremity, 10/10, constant, sharp in nature. Also reported living is getting swollen. He also reports having tingling and numbness on the lower extremities. The patient also had a fall 4 days back followed by left- sided chest pain. He also reports having shortness of breaths. Nausea, vomiting, dysuria, cough, dysarthria or change in vision. On admission patient had tachycardia with a pulse 121, Initial lab workup revealed leukocytosis WBC 17.8, neutrophil 89.9, lactic acid 2.6, hemoglobin A1c 5.8. UDS positive for cocaine and meth. Bilateral lower extremity Doppler negative for DVT. CT scan of the bilateral lower extremity revealed cellulitis, no necrotizing lesion. During hospital course patient was treated with IV antibiotic cefepime and vancomycin. Patient needed to continue IV antibiotic but patient left AMA. Patient's condition was undetermined on discharge. General examination- awake, alert, oriented HEENT- PEERLA, no acute nasal discharge Cardiovascular- S1-S2 audible, rate and rhythm regular, no murmur Respiratory- CTAB, no wheeze or rhonchi Gastrointestinal-nontender, bowel sound+. Nondistended Musculoskeletal-no acute joint swelling or tenderness or redness Lower extremity- bilateral lower extremity swollen, edematous, redness, tender to touch Neurological- cranial nerves intact, no acute dysarthria or dysphagia Psychiatry- denies depression or SI or HI Skin- no acute rash or purpura Operations or Procedures [address] - [address] Ph: [phone] DIAGNOSTIC IMAGING Diagnostic Imaging Report : [id number] Signed PATIENT: HUANG FRASER ACCT: [id number] UNIT: [id number] : 1970 LOC: ER ROOM / BED: / AGE / SEX: 55 / M ADM STATUS: REG ER SERVICE 44 ORDERING PHYSICIAN: PAM YANCEY MD PROCEDURE(s): CXR1 - CHEST XRAY 1 VIEW REASON: cp ORDER NUMBER(s): [id number], ACCESSION NUMBER(s): [id number] CHEST RADIOGRAPH Indication: cp Technique: Single frontal view of the chest was obtained. Comparison: XR CHEST 1 VIEW on DOS: 03/04/21 Findings: No focal consolidation. No significant pleural effusion. No pneumothorax. Nonenlarged cardiomediastinal silhouette. IMPRESSION: No acute cardiopulmonary process. ATED BY: ZORAIDA TRAMMELL MD DICTATED DATE/TIME: 09/21/251957 SIGNED BY: ZORAIDA TRAMMELL MD SIGNED DATE/TIME: 09/21/251957 CC: [place] [id number] Ph: [phone] DIAGNOSTIC IMAGING Diagnostic Imaging Report : [id number] Signed PATIENT: HUANG FRASER ACCT: [id number] UNIT: [id number] : 1970 LOC: ER ROOM / BED: / AGE / SEX: 55 / M ADM STATUS: REG ER SERVICE 44 ORDERING PHYSICIAN: PAM YANCEY MD PROCEDURE(s): BLDVT - BiLat Lower DVT REASON: b/l le edema ORDER NUMBER(s): [id number], ACCESSION NUMBER(s): [id number] US BiLat Lower DVT Comparison: CV VENOUS DOPPLER LOW EXT RT on DOS: 07/15/23 Technique: Realtime grayscale and Doppler ultrasound images of the deep venous structures with spectral waveform analysis were obtained.Doppler spectral waveform analysis of the bilateral lower extremity veins was performed. Findings: Right Lower Extremity: Right common femoral vein: Normal compressibility and flow. Right femoral vein: Normal compressibility and flow. Right popliteal vein: Normal compressibility and flow. Left Lower Extremity: Left common femoral vein: Normal compressibility and flow. Left femoral vein: Normal compressibility and flow. Left popliteal vein: Normal compressibility and flow. IMPRESSION: NO SONOGRAPHIC EVIDENCE FOR DEEP VENOUS THROMBOSIS IN THE BILATERAL LOWER EXTREMITY VEINS. ATED BY: ZORAIDA TRAMMELL MD DICTATED DATE/TIME: 09/21/251951 SIGNED BY: ZORAIDA TRAMMELL MD SIGNED DATE/TIME: 09/21/251951 CC: [place] [id number] Ph: [phone] DIAGNOSTIC IMAGING Diagnostic Imaging Report : [id number] Signed PATIENT: HUANG FRASER JR ACCT: [id number] UNIT: [id number] : 1970 LOC: OVERFLOW ROOM / BED: [address] [place] [address] A AGE / SEX: 55 / M ADM STATUS: ADM IN SERVICE 8 ORDERING PHYSICIAN: LEYX CONNELLY RESIDENT PROCEDURE(s): LLEX - LEFT LOWER EXTREMITY W/O CON REASON: CELLULITIS/FASCITIS/COMPARTMENT SYNDROME ORDER NUMBER(s): [id number], ACCESSION NUMBER(s): [id number] EXAMINATION: CT LEFT LOWER EXTREMITY W/O CON INDICATION: CELLULITIS/FASCITIS/COMPARTMENT SYNDROME, pain and swelling COMPARISON: US BILAT LOWER DVT on DOS: 09/21/25, CV VENOUS DOPPLER LOW EXT RT on DOS: 07/15/23, CT LOWER EXT RIGHT W and WO on DOS: 03/03/21, XR TIB FIB RT on DOS: 03/02/21 TECHNIQUE: CT of the rightleft femur was performed without contrast. Volume transverse images were obtained and reconstructed in multiple planes using bone and soft tissue algorithms. Radiation Dose : CTDIvol 15.33 mGy, DLP 1590.88 mGy*cm. The dose indicators for CT are the volume Computed Tomography (CT) Dose Index (CTDIvol) and the Dose Length Product (DLP), and are measured in units of mGy and mGy-cm, respectively. These indicators are not patient dose, but values generated from the CT scanner acquisition factors. The report includes radiation exposure data for exposures received during this examination. FINDINGS: Generalized soft tissue edema. No focal fluid collections. No soft tissue gas. No fracture or malalignment. No erosive bony changes. IMPRESSION: Diffuse soft tissue swelling suggesting cellulitis or fluid overload. No organized fluid collections or CT evidence for osteomyelitis. No soft tissue gas to suggest a necrotizing infection. All CT scans at this medical facility are performed using dose modulation techniques as appropriate to a performed exam including the following: Automated exposure control was utilized; adjustment of the MA and/or KV according to patient size; and use of iterative reconstruction technique. ATED BY: ZORAIDA TRAMMELL MD DICTATED DATE/TIME: 09/22/25 1050 SIGNED BY: ZORAIDA TRAMMELL MD SIGNED DATE/TIME: 09/22/25 105 CC: [place] [id number] Ph: [phone] DIAGNOSTIC IMAGING Diagnostic Imaging Report : [id number] Signed PATIENT: HUANG FRASER JR ACCT: [id number] UNIT: [id number] : 1970 LOC: OVERFLOW ROOM / BED: [address] [place] [address] AGE / SEX: 55 / M ADM STATUS: ADM IN SERVICE 0 ORDERING PHYSICIAN: CURT AU RESIDENT PROCEDURE(s): RLEX - LOWER EXTREMITY NON JOINT RIGH REASON: SWELLING PAIN ORDER NUMBER(s): [id number], ACCESSION NUMBER(s): [id number] EXAMINATION: CT LOWER EXTREMITY NON JOINT RIGH INDICATION: SWELLING PAIN COMPARISON: CT LEFT LOWER EXTREMITY W/O CON on DOS: 09/22/25, CV VENOUS DOPPLER LOW EXT RT on DOS: 07/15/23, CT LOWER EXT RIGHT W and WO on DOS: 03/03/21, XR TIB FIB RT on DOS: 03/02/21 TECHNIQUE: CT of the rightleft femur was performed without contrast. Volume transverse images were obtained and reconstructed in multiple planes using bone and soft tissue algorithms. Radiation Dose : CTDIvol 15.33 mGy, DLP 1590.88 mGy*cm. The dose indicators for CT are the volume Computed Tomography (CT) Dose Index (CTDIvol) and the Dose Length Product (DLP), and are measured in units of mGy and mGy-cm, respectively. These indicators are not patient dose, but values generated from the CT scanner acquisition factors. The report includes radiation exposure data for exposures received during this examination. FINDINGS: Diffuse soft tissue edema throughout the right lower extremity. No focal fluid collections. No fracture or malalignment. No erosive bony changes. Few prominent lymph nodes in the right groin, likely reactive. IMPRESSION: Soft tissue swelling suggesting cellulitis. No organized fluid collections or CT evidence for osteomyelitis. No soft tissue gas to suggest a necrotizing infection. All CT scans at this medical facility are performed using dose modulation techniques as appropriate to a performed exam including the following: Automated exposure control was utilized; adjustment of the MA and/or KV according to patient size; and use of iterative reconstruction technique. ATED BY: ZORAIDA TRAMMELL MD DICTATED DATE/TIME: 09/22/25 1112 SIGNED BY: ZORAIDA TRAMMELL MD SIGNED DATE/TIME: 09/22/25 1112 CC: Condition at Discharge: Undetermined Final Diagnosis/Problems List #Sepsis secondary to cellulitis #Peripheral neuropathy #Chest pain rule out ACS #Hypertensive heart disease #Type 2 diabetes mellitus #Polysubstance abuse Discharge Disposition: AMA Discharge Instruct/Medications Diet: Consistent carbohydrate, Cardiac 2g Na,low cholest Follow Up/Referral: Patient left AMA Medications: See prescription Scheduled Sulfamethoxazole W/Trimethopri (Bactrim Ds Tablet), 1 TAB PO BID Discharge Statement: "Patient was advised to return to the ER or call 911 if any headaches, dizziness, shortness of breath, chest pain, abdominal pain, bleeding, fevers, or worsening of medical condition. Patient was counseled about treatment plan, medications, possible side effects, patientverbalized understanding. All questions were answered to the best of my ability. This discharge took greater then 30 minutes in planning, reviewing documentation, counseling the patient, and discussing with other team members." ASSESSMENT ASSESSMENT Assessment LEXY CONNELLY RESIDENT Sep 24, 2025 15:00
== END 2025-09-24 12:17 | disposition left against medical advice (07) | DRG 720 ==
LOC: ER 18:08 → OVERFLOW 21:37 → CENTRAL 09-22 18:05
PROVIDERS: ADMIT Internal Medicine Geriatric Medicine; ATTEND Internal Medicine Geriatric Medicine
DX: A41.9 Sepsis, unspecified organism (principal); I24.9 Acute ischemic heart disease, unspecified; L03.115 Cellulitis of right lower limb; L03.116 Cellulitis of left lower limb; I11.9 Hypertensive heart disease without heart failure; E11.42 Type 2 diabetes mellitus with diabetic polyneuropathy; F15.10 Other stimulant abuse, uncomplicated; F14.10 Cocaine abuse, uncomplicated; Z53.29 Procedure and treatment not carried out because of patient's decision for other reasons; Z90.49 Acquired absence of other specified parts of digestive tract; Z80.8 Family history of malignant neoplasm of other organs or systems
CPT/HCPCS: 36415; 71045; 73700; 80048; 80053; 80076; 80202; 80307; 81001; 82306; 82607; 83036; 83605; 83880; 84443; 84484; 85025; 87040; 87340; 93970; 96361; 96365; G0378